=== PATIENT | male | born 1980 | race Caucasian/White ===

== ENCOUNTER 2019-08-07 04:49 | Emergency (ER) | payer OTHER, SELFPAY ==
--- NOTE | ~2019-08-07 | CT_ITS ---
EXAMINATION: CT abdomen pelvis w con DATE: 08/07/2019 05:48 INDICATION: Left-sided abdominal pain. TECHNIQUE: Computed tomography (CT) of the abdomen and pelvis was performed with 100 mL Omnipaque-350 intravenous contrast. Automated exposure control and iterative reconstruction technique were employe d. The dose-length product was 391.01 mGy-cm. COMPARISON: 11/25/2018 FINDINGS: Lung bases are clear. Heart size is normal. No pericardial or pleural effusion. Liver, gallbladder, s pleen, pancreas, bilateral adrenal glands and kidneys are normal. Bowels including the appendix are n ormal. There is diffuse bladder wall thickening. Prostatomegaly. There is also mild enlargement of th e seminal vesicles with surrounding fat stranding. Small bilateral fat-containing inguinal hernias. N o free intraperitoneal gas or fluid. No pathologically enlarged abdominal or pelvic lymphadenopathy. There are few small sclerotic bone islands at the bilateral femoral heads. Mild degenerative skeletal changes at the bilateral hips and at the lumbosacral junction. IMPRESSION: 1. Prostatomegaly, diffuse bladder wall thickening and enlargement and inflammatory stranding of the bilateral seminal vesicles suggestive of cystitis, prostatitis and seminal vesiculitis. Correlate wit h urinalysis. Reviewed, dictated and finalized at location A. IMPRESSION: 1. Prostatomegaly, diffuse bladder wall thickening and enlargement and inflamma tory stranding of the bilateral seminal vesicles suggestive of cystitis, prosta titis and seminal vesiculitis. Correlate with urinalysis.
[2019-08-07 04:53] VITALS: BP 147/105; PULSE 90; RESP 23; TEMP 36.8; O2SAT 100
--- NOTE | 2019-08-07 04:55 | ED.ABDPAIN ---
HPI - Abdominal Pain General Chief Complaint: Abdominal Pain Stated Complaint: Abd pain Time Seen by Provider: 08/07/19 04:52 Source: RN notes reviewed History of Present Illness HPI narrative: Patient presents emergency department from home for abdominal pain. Patient states pain began suddenly approximately 1 hour ago. Pain is located in the left lower quadrant does not radiate described as sharp and stabbing associated with nausea denies any fevers or chills chest pain shortness of breath diarrhea or any other symptoms. Patient states he was seen for similar pain before in past and was given medication for abdominal cramping which she did take Related Data Allergies Allergy/AdvReac Type Severity Reaction Status Date / Time Penicillins Allergy Severe swelling Verified 12/01/18 02:04 Review of Systems Review of Systems: Narrative: Gen.: Denies fevers or chills ENT: Denies congestion Respiratory: Denies shortness of breath or cough CV: Denies chest pain or palpitations GI: See HPI denies burning, urgency, frequency or hematuria Musculoskeletal: Denies back pain or muscle pain Neuro: Denies numbness, tingling, weakness or focal weakness Skin: Denies rash Except as documented, all other systems reviewed and negative FORMERLY [facility] Past Medical History Medical History (Updated 08/07/19 @ 06:41 by Bruce Mckeon DO) Patient denies significant medical history Social History Social History (Updated 08/07/19 @ 04:56 by Bruce Mckeon DO) Smoking status: Current some day smoker Exam Narrative: Exam Narrative: APPEARANCE: No acute distress, nontoxic, resting in bed HEENT: Normocephalic, atraumatic, OMM RESPIRATORY: No respiratory distress, clear to auscultation bilaterally with no rhonchi wheezing or rales CARDIOVASCULAR: RRR s murmur ABDOMINAL: Soft, nondistended, tenderness to palpation in the left mid abdomen minimal tenderness in left lower quadrant and left upper quadrant no tenderness in, right upper quadrant right lower quadrant, no rebound or guarding MUSCULOSKELETAl: Moves all extremities. No clubbing, cyanosis or edema. NEURO: Awake and alert. Following commands, speech normal, no focal deficits SKIN:: Warm, dry. Normal Color PSYCHIATRIC: Normal affect/mood Course Course Emergency Course: Patient states pain is completely resolved at this time repeat abdominal exam is soft and nontender \Discussed with Dr. Frausto patient CT scan and work-up at this time with no pain with urination no testicular tenderness or lower abdominal tenderness recommends no treatment follow-up with PCP as outpatient Reviewed the patient's CT scan shows questionable seminal vesiculitis the patient has no dysuria no testicular tenderness there is no tenderness in the palpation of the deep pelvis feel that this is unlikely at this time I did discuss with the patient and will hold on treatment Patient states that they are feeling much better at this time. States abdominal pain has resolved. Repeat abdominal exam shows the patient's abdomen to be soft and nontender. Discussed with patient results of workup and diagnosis. Discussed need for follow-up with primary care physician, reasons to return to the emergency department in proper use of medication. Patient understands and agrees to current treatment plan Vital Signs Vital signs: Vital Signs Temperature 98.2 F 08/07/19 04:53 Pulse Rate 90 08/07/19 04:53 Respiratory Rate 23 H 08/07/19 04:53 Blood Pressure 147/105 H 08/07/19 04:53 Pulse Oximetry 100 08/07/19 04:53 Temperature 98.7 F 08/07/19 06:42 Pulse Rate 87 08/07/19 06:42 Respiratory Rate 14 08/07/19 06:42 Blood Pressure 148/98 H 08/07/19 06:42 Pulse Oximetry 100 08/07/19 06:42 MDM - Abdominal Pain MDM Narrative Medical decision making narrative: Patient's abdomen is soft without significant pain or signs of surgical abdomen on serial exams. Lab and x-ray evaluations are reviewed and patient is felt
[2019-08-07 05:04] VITALS: BP 157/99
[2019-08-07] MEDS: ONDANSETRON INJ 4 MG/2 ML VIAL IV PUSH (05:09)
[2019-08-07] MEDS: KETOROLAC 30 MG/ML VIAL (*BKC) IV PUSH (05:09)
[2019-08-07] MEDS: SODIUM CHLORIDE 0.9% IV 1,000 ML 999 ML IV CONT (05:09)
[2019-08-07 05:10] LABS: Basophils Absolute Auto 0.1 K/mm3 (0.0-0.1); Basophils Percent Auto 0.9 % (0.2-1.2); Eosinophils Absolute Auto 0.1 K/mm3 (0-0.3); Hematocrit 46.8 % (42.0-52.0); Hemoglobin 16.7 g/dL (14.0-18.0); Immature Granulocyte Absolute 0.02 K/mm3 (0.00-0.031); Immature Granulocyte Percent A 0.3 % (0-0.5); Lymphocytes Absolute Auto 1.46 K/mm3 (0.9-3.2); Lymphocytes Percent Auto 22.4 % (18.3-44.2); Mean Corpuscular HGB Conc 35.7 g/dl (32-36); Mean Corpuscular Volume 92.5 fl (80-100); Mean Platelet Volume 9.7 fl (7.4-10.4); Monocytes Absolute Auto 0.7 K/mm3 (0.1-0.6); Monocytes Percent Auto 10.9 % (2.6-8.5); Neutrophils Absolute Auto 4.2 K/mm3 (1.3-6.7); Neutrophils Percent Auto 63.5 % (45.5-73.1); Platelet Count Result 202 k/mm3 (150-375); Red Blood Count 5.06 M/mm3 (4.6-6.20); White Blood Count 6.5 K/mm3 (4.5-10.0)
[2019-08-07 05:20] LABS: Add Urine Microscopic? YES; Appearance Urine Clear (Clear); Bacteria Urine Trace /hpf; Bilirubin Urine Negative (Negative); Blood Urine Negative (Negative); Color Urine Yellow (Yellow); Glucose Urine UA Negative (Negative); Ketones Urine Negative (Negative); Leukocyte Esterase Ur Negative LEU/UL (Negative); Mucus Urine Few /lpf; Nitrate Urine Negative (Negative); Protein Urine Negative (Negative); Specific Grav Ur 1.014 (1.001-1.035); Squamous Epithelial Cell Urine Rare /hpf (Few); WBC Urine 0-3 /hpf
[2019-08-07 05:28] LABS: Alanine Aminotransferase 19 U/L (4-50); Albumin Level 4.5 g/dL (3.5-5.1); Alkaline Phosphatase 56 U/L (38-126); Aspartate Amino Transferase 20 U/L (17-59); Bilirubin,Total 0.9 mg/dL (0.2-1.3); Blood Urea Nitrogen 6 mg/dL (9-20); Calcium 9.4 mg/dL (8.4-10.2); Carbon Dioxide 28 mmol/L (22-30); Chloride 101 mmol/L (98-107); Estimated Glomerular Filt Rate > 60; Glucose 95 mg/dL (75-110); Lipase 74 U/L (23-300); Potassium 3.5 mmol/L (3.4-5.0); Sodium 137 mmol/L (137-145)
[2019-08-07 06:09] VITALS: BP 153/91; PULSE 97; RESP 18; O2SAT 100
[2019-08-07 06:39] VITALS: BP 148/98; PULSE 89; RESP 14; O2SAT 100
[2019-08-07 06:42] VITALS: BP 148/98; PULSE 87; RESP 14; TEMP 37.1; O2SAT 100
== END 2019-08-07 06:55 | disposition home or self-care (01) ==
PROVIDERS: Emergency Provider Emergency Medicine; PCP Urology
DX: R10.32 Left lower quadrant pain (principal); F17.210 Nicotine dependence, cigarettes, uncomplicated
CPT/HCPCS: 36415; 74177; 80053; 81001; 83690; 85025; 96361; 96374; 96375; 99284; A9270; J1885; J2405; J7030; Q9967

== ENCOUNTER 2022-02-18 18:31 | Observation (INO) | payer OTHER, SELFPAY ==
[2022-02-18] VITALS (8 sets, daily range): BP systolic 95–168; BP diastolic 66–102; PULSE 64–100; RESP 15–23; TEMP 36.6; O2SAT 100; BMI 26.6
--- NOTE | ~2022-02-18 | US_ITS ---
EXAMINATION: US scrotum doppler DATE: 02/18/2022 20:25 INDICATION: R SCROTAL PAIN . TECHNIQUE: Grayscale and Doppler ultrasound images of the testes were obtained. COMPARISON: None. FINDINGS: The right testis measures 5.7 x 2.6 x 3.3 cm. The left testis measures 5.5 x 2.5 x 3.2 cm. No testicular mass. There is normal vascular flow to both testes. The right epididymis is enlarged wi th normal vascular flow. The left epididymis is normal with normal vascular flow. Small right hydroce le. No left hydrocele. No varicoceles. IMPRESSION: Enlarged right epididymis with a small right hydrocele, which may reflect acute or chronic epididymit is. Consider urology referral, with short-term sonographic follow-up after appropriate therapy to exc lude other masses of the epididymis/paratesticlar region, such as adenomatoid tumor, fibrous pseudotu mor, etc. Reviewed, dictated and finalized at location K. ORESIST CONTACT PRINTER IMPRESSION: Enlarged right epididymis with a small right hydrocele, which may reflect acute or chronic epididymitis. Consider urology referral, with short-term sonographi c follow-up after appropriate therapy to exclude other masses of the epididymis /paratesticlar region, such as adenomatoid tumor, fibrous pseudotumor, etc.
--- NOTE | 2022-02-18 19:14 | ECG_ITS ---
Measurements Intervals [place] Rate: 68 P: 25 MS: 137 QRS: -10 QRSD: 112 T: -1 QT: 415 QTc: 443 Interpretive Statements SINUS RHYTHM MODERATE INTRAVENTRICULAR CONDUCTION DELAY [110+ ms QRS DURATION] COMPARED TO ECG 12/01/2018 02:05:36 NO SIGNIFICANT CHANGES Electronically Signed On 02-19-2022 16:18:31 [employer] by Maribel Mckeon M.D.
--- NOTE | 2022-02-18 19:15 | ED.GENADULT ---
HPI - General Adult General Chief complaint: Urogenital-Male Stated complaint: R SCROTAL PAIN Time Seen by Provider: 02/18/22 19:02 History of Present Illness HPI narrative: This is a 41-year-old male presenting to ED with right testicular pain. The pain started at 5:30 p.m.. Started as pain in the suprapubic area but quickly localized to his right testicle. He notes that it is high riding Related Data Allergies Allergy/AdvReac Type Severity Reaction Status Date / Time Penicillins Allergy Severe swelling Verified 02/18/22 19:18 FOR[facility], [facility] Past Medical History Medical History (Updated 02/18/22 @ 22:26 by Robert Zavala MD) Patient denies significant medical history Social History Social History (Updated 08/07/19 @ 04:56 by Bruce Mckeon DO) Smoking status: Current some day smoker Course Vital Signs Vital signs: Vital Signs Temperature 97.8 F 02/18/22 18:52 Pulse Rate 89 02/18/22 18:52 Respiratory Rate 20 02/18/22 18:52 Blood Pressure 95/66 L 02/18/22 18:52 Pulse Oximetry 100 02/18/22 18:52 Temperature 97.8 F 02/18/22 18:52 Pulse Rate 66 02/18/22 22:20 Respiratory Rate 18 02/18/22 22:20 Blood Pressure 150/78 H 02/18/22 22:20 Pulse Oximetry 100 02/18/22 22:20 Oxygen Delivery Room Air 02/18/22 19:00 Medical Decision Making [facility] Narrative Medical decision making narrative: This is a 41-year-old male presenting ED with acute testicle pain. His history and physical are concerning for testicular torsion. Rory D torsion was attempted. A stat ultrasound was ordered. Urology was contacted. The patient is given pain medication. Lab work was ordered. EKG interpretation: Rhythm [sinus], Rate [], [place] -[normal], [place] -[normal], QRS [narrow], QTC [normal], T waves -[negative for concerning inversions], ST Segments - [Negative for concerning elevations] Final interpretations: [Normal Sinus Rhythm] US Scrotum: Enlarged right epididymis with a small right hydrocele, which may reflect acute or chronic epididymitis. Consider urology referral, with short-term sonographic follow-up after appropriate therapy to exclude other masses of the epididymis/paratesticlar region, such as adenomatoid tumor, fibrous pseudotumor, etc. Urinalysis was negative for signs of infection. At this time I still have a very high clinical suspicion for testicular torsion. It is possible that the manual detorsion was successful and restored flow. The patient is still very uncomfortable and requiring IV pain medications. The patient will be admitted to the hospital for pain medication and urology consultation in the morning. I have spoken with the urologist Dr. Garnett. He requests the patient be started on ceftriaxone and Levaquin. Patient will be admitted to the hospital. P.r.n. pain medication have been placed. Vital Signs Vital Signs: Vital Signs Temperature 97.8 F 02/18/22 18:52 Pulse Rate 89 02/18/22 18:52 Respiratory Rate 20 02/18/22 18:52 Blood Pressure 95/66 L 02/18/22 18:52 Pulse Oximetry 100 02/18/22 18:52 Temperature 97.8 F 02/18/22 18:52 Pulse Rate 66 02/18/22 22:20 Respiratory Rate 18 02/18/22 22:20 Blood Pressure 150/78 H 02/18/22 22:20 Pulse Oximetry 100 02/18/22 22:20 Oxygen Delivery Room Air 02/18/22 19:00 Lab Data 02/18/22 19:28 02/18/22 19:28 Labs: Lab Results 02/18/22 02/18/22 02/18/22 Range/Units 19:28 19:28 19:28 WBC 10.1 H (4.5-10.0) K/mm3 RBC 4.93 (4.6-6.20) M/mm3 Hgb 16.5 (14.0-18.0) g/dL Hct 45.4 (42.0-52.0) % MCV 92.1 (80-100) fl MCH 33.5 (26-34) pg MCHC 36.3 H (32-36) g/dl RDW 12.4 (11.5-14.5) % Plt Count 227 (150-375) k/mm3 MPV 9.3 (7.4-10.4) fl Immature Gran % (Auto) 0.3 (0-0.5) % Neut % (Auto) 68.2 (45.5-73.1) % Lymph % (Auto) 21.9 (18.3-44.2) % [place] % (Auto) 8.0 (2.6-8.5) % Eos % (Auto) 0.9 (0-4.4)
[2022-02-18] MEDS: ONDANSETRON INJ 4 MG/2 ML VIAL IV PUSH (19:19)
[2022-02-18] MEDS: HYDROmorphone HCL INJ (*CRX) 1 MG/ML SYR IV PUSH ×2 (19:19→23:10)
[2022-02-18] MEDS: SODIUM CHLORIDE 0.9% IV 1,000 ML 999 ML IV CONT ×2 (19:19→22:16)
[2022-02-18 19:34] LABS: Basophils Absolute Auto 0.1 K/mm3 (0.0-0.1); Basophils Percent Auto 0.7 % (0.2-1.2); Eosinophils Absolute Auto 0.1 K/mm3 (0-0.3); Eosinophils Percent Auto 0.9 % (0-4.4); Hematocrit 45.4 % (42.0-52.0); Hemoglobin 16.5 g/dL (14.0-18.0); Immature Granulocyte Absolute 0.03 K/mm3 (0.00-0.031); Immature Granulocyte Percent A 0.3 % (0-0.5); Lymphocytes Absolute Auto 2.21 K/mm3 (0.9-3.2); Lymphocytes Percent Auto 21.9 % (18.3-44.2); Mean Corpuscular HGB Conc 36.3 g/dl (32-36); Mean Corpuscular Hemoglobin 33.5 pg (26-34); Mean Corpuscular Volume 92.1 fl (80-100); Mean Platelet Volume 9.3 fl (7.4-10.4); Monocytes Absolute Auto 0.8 K/mm3 (0.1-0.6); Neutrophils Absolute Auto 6.9 K/mm3 (1.3-6.7); Neutrophils Percent Auto 68.2 % (45.5-73.1); Platelet Count Result 227 k/mm3 (150-375); Red Blood Count 4.93 M/mm3 (4.6-6.20); Red Cell Distribution Width 12.4 % (11.5-14.5); White Blood Count 10.1 K/mm3 (4.5-10.0)
[2022-02-18 19:44] LABS: Alanine Aminotransferase 21 U/L (6-50); Albumin Level 4.7 g/dL (3.5-5.1); Alkaline Phosphatase 90 U/L (38-126); Anion Gap 12 mmol/L (8-16); Aspartate Amino Transferase 24 U/L (17-59); Bilirubin,Total 0.9 mg/dL (0.2-1.3); Blood Urea Nitrogen 13 mg/dL (9-20); Calcium 9.2 mg/dL (8.4-10.2); Carbon Dioxide 22 mmol/L (22-30); Chloride 103 mmol/L (98-107); Estimated CRCL calculation 108 ml/min; Estimated Glomerular Filt Rate > 60; Glucose 115 mg/dL (65-110); Magnesium 1.7 mg/dL (1.6-2.3); Potassium 3.7 mmol/L (3.4-5.0); Sodium 137 mmol/L (137-145)
[2022-02-18 19:49] LABS: Prothrombin Time 13.1 Seconds (11.1-14.7)
[2022-02-18] MEDS: ACETAMINOPHEN 500 MG TABLET 1000 MG PO (20:55)
[2022-02-18] MEDS: KETOROLAC 15 MG/ML VIAL (*BKC) IV PUSH (20:55)
[2022-02-18 21:18] LABS: Appearance Urine Clear (Clear); Bilirubin Urine Negative (Negative); Blood Urine Negative (Negative); Color Urine Yellow (Yellow); Glucose Urine UA Negative (Negative); Ketones Urine 2+ mg/dL (Negative); Leukocyte Esterase Ur Negative LEU/UL (Negative); Nitrate Urine Negative (Negative); Protein Urine Negative (Negative); Specific Grav Ur 1.025 (1.001-1.035); Urobilinogen Urine 0.2 mg/dL (<2.0)
[2022-02-18 21:27] LABS: Lactic Acid Reflex 2.9 mmol/L (0.7-2.0)
[2022-02-18 21:28] LABS: Mucus Urine Rare /lpf; WBC Urine 0-3 /hpf
[2022-02-18 21:31] LABS: Add Urine Microscopic? YES
[2022-02-18 21:50] LABS: Influenza A QL RT-PCR Negative (Negative); Influenza B QL RT-PCR Negative (Negative); SARS-CoV-2 RNA PCR Negative
--- NOTE | 2022-02-18 23:42 | ADMGEN ---
This patient, Augustus Haddad, was admitted to [facility] Surg Room 329-01. Patient/family oriented to hospital policies and general routines including ID bracelet, bed and alarms, visiting hours, pain management, procedures, bathroom and other care routines, personal items, smoking policy, room service/diet, and visiting hours. Information on how to activate the Rapid Response Team has been discussed. Patient/Family are encouraged to report perceived risks to care and to ask questions if they do not understand what they are told or what they should do.
[2022-02-18 23:57] LABS: Lactic Acid Reflex 1.6 mmol/L (0.7-2.0)
[2022-02-19] MEDS: KETOROLAC 30 MG/ML VIAL (*BKC) IV PUSH ×2 (00:05→09:32)
[2022-02-19 00:10] LABS: Reflex Lactic Acid Yes or No Add Lactic
[2022-02-19] MEDS: LACTATED RINGERS 1,000 ML 125 ML IV CONT ×3 (00:38→19:21)
[2022-02-19] MEDS: MORPHINE SULFATE (*CRX) 2 MG/ML INJ 1 MG IV PUSH ×2 (01:09→01:53)
[2022-02-19] MEDS: ONDANSETRON INJ 4 MG/2 ML VIAL IV PUSH (01:09)
[2022-02-19] MEDS: levoFLOXacin 500 MG/D5W 100 ML 500 MG/100 ML BAG 100 MG IVPB (01:10)
[2022-02-19] MEDS: HYDROmorphone HCL INJ (*CRX) 1 MG/ML SYR IV PUSH (03:23)
[2022-02-19 06:00] VITALS: BP 155/91; PULSE 96; RESP 16; TEMP 36.8; O2SAT 100
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
[2022-02-19] MEDS: IBUPROFEN 400 MG TABLET 800 MG PO ×3 (09:27→17:18)
[2022-02-19 13:42] VITALS: BP 136/77; PULSE 97; RESP 14; TEMP 36.3; O2SAT 100
[2022-02-19 19:16] VITALS: BP 135/76; PULSE 90; RESP 17; TEMP 36.3; O2SAT 100
[2022-02-20] MEDS: IBUPROFEN 400 MG TABLET 800 MG PO ×3 (00:28→11:38)
[2022-02-20 03:14] VITALS: BP 132/74; PULSE 68; RESP 18; TEMP 35.9; O2SAT 99
[2022-02-20] MEDS: LACTATED RINGERS 1,000 ML 125 ML IV CONT (06:37)
[2022-02-20 11:02] VITALS: O2SAT 98
--- NOTE | 2022-02-20 17:04 | P.PNUR_ITS ---
Progress Note: A&P Assessment and Plan (1) Epididymitis, right: Code(s): N45.1 - Epididymitis Status: Acute Assessment and Plan: Ok to discharge home on Ciprofloxacin, elevate scrotum, apply ice. (2) Pain in right testicle: Code(s): N50.811 - Right testicular pain Status: Acute Subjective Subjective Date/Time Seen: 02/20/22 17:04 Right Epididymitis Patient tolerating pain today, he will go home on oral Cipro. Review of Systems Cardiovascular: Cardiovascular: Denies chest pain Respiratory: Respiratory: Reports no additional respiratory complaints Gastrointestinal: Gastrointestinal: Denies abdominal pain, Denies nausea and Denies vomiting Genitourinary: Genitourinary: Denies hematuria, Reports genital pain, Denies dysuria, Denies flank pain, Reports scrotal swelling, Reports testicular pain, Denies urinary frequency, Denies urinary hesitancy, Denies urinary incontinence and Denies urinary urgency Exam 2 Const: General: cooperative and comfortable Resp: Effort & Inspection: normal respiratory effort Cardio: Rate: regular rate GI: GI Palp: Yes Soft to palpation and No Tenderness to palpation present (GI) : General: Yes no CVA tenderness Testes: epididymal induration on the right and epididymal tenderness on the right Extrem: Right lower extremity: no edema Left lower extremity: no edema Objective Data Vital Signs Vital Signs: Vital Signs - 24 hr 02/19/22 19:16 02/20/22 03:14 02/20/22 11:02 Temperature 97.3 F L 96.7 F L Pulse Rate 90 68 Respiratory Rate 17 18 Blood Pressure 135/76 132/74 Pulse Oximetry 100 99 98 Oxygen Delivery Room Air 02/20/22 09:25 Temperature Pulse Rate Respiratory Rate Blood Pressure Pulse Oximetry Oxygen Delivery Room Air Intake/Output Intake/Output: Intake & Output 02/17/22 02/18/22 02/19/22 02/20/22 23:59 23:59 23:59 23:59 Intake Total 20490 2430 Output Total 1300 450 Balance 2049 1160 1979 Meds/Results Radiology Results: ITS Impressions Scrotum Ultrasound 02/18/22 20:28 IMPRESSION: Enlarged right epididymis with a small right hydrocele, which may reflect acute or chronic epididymitis. Consider urology referral, with short-term sonographic follow-up after appropriate therapy to exclude other masses of the epididymis/paratesticlar region, such as adenomatoid tumor, fibrous pseudotumor, etc.
--- NOTE | 2022-02-20 17:08 | PM.DS ---
DS: Admitting Diagnosis Discharge Date 02/20/22 Admitting Diagnosis Right Testicle Edema DS: Discharge Diagnosis Discharge Diagnosis Plan Right Epididymitis DS: Summary Hospital Course Hospital Course: This is a 41-year-old male presenting to ED with right testicular pain on 02/18/22, and states the pain started in the suprapubic area but quickly localized to his right testicle.? He had a scrotal US to rule out torsion, which showed Enlarged right epididymis with a small right hydrocele, which may reflect acute or chronic epididymitis. Consider urology referral, with short-term sonographic follow-up after appropriate therapy to exclude other masses of the epididymis and testiclar region, such as adenomatoid tumor, fibrous pseudotumor, etc. His WBC remains normal and he is afebrile, although his testicle pain has improved since being on IV Levaquin. He will be discharged home today with a regular diet, activity and resume all home meds. He will start Ciprofloxacin, elevate scrotum and apply ice. Time spent discussing smoking cessation with patient: more than 10 minutes Status at Discharge Functional status at discharge: independent ambulation Time Spent with Patient Time attestation: Total time spent providing and/or coordinating discharge services: Time spent: Greater than 30 minutes Exam Const: General: cooperative and comfortable Resp: Effort & Inspection: normal respiratory effort Cardio: Rate: regular rate : General: Yes no CVA tenderness Testes: epididymal induration on the right and epididymal tenderness on the right Extrem: Right lower extremity: no edema Left lower extremity: no edema Discharge Plan Discharge Attending physician on discharge: Guy Garnett Discharging Clinician: Daniella Alexis Anticipated Discharge Date/Time: 02/20/22 13:23 Patient Disposition: Home, Self-Care Activity: may shower Diet: as tolerated Discharge Instructions: Call the office to schedule your 2-3 week f/u appointment. Ok to take Ibuprofen 800mg q6 hours PRN for pain. Apply Ice to Scrotum and elevate scrotum to improve pain and swelling. If you develop a fever or worsening symptoms call the office or go to the ER. Patient Instructions: Antibiotic Form, Hydrocele (DC), Pain Management (DC) Stand Alone Forms: General Discharge Information Follow-up/Referrals: Guy Garnett MD [Physician] - Discharge Medications: New ciprofloxacin HCl 500 mg tablet 500 mg PO Q12H Qty: 20 0RF Continued valacyclovir 500 mg tablet 500 mg PO DAILY dextroamphetamine-amphetamine [Adderall XR] 30 mg capsule,extended release 24hr 30 mg PO DAILY bupropion HCl 300 mg tablet extended release 24 hr 300 mg PO DAILY tadalafil 5 mg tablet 5 mg PO PRN PRN (Reason: Erectile Dysfunction) melatonin 5 mg Capsule 5 mg PO HS PRN (Reason: Insomnia) Date of admission: 02/18/22 22:22 Primary Care Provider: PHYSICIAN NOT ON STAFF,NONSTAFF Admitting Provider: Guy Garnett Attending physician on admission: Guy Garnett Condition: Improved
== END 2022-02-20 14:10 | disposition home or self-care (01) ==
LOC: ANHED 22:26 → ANH3MEDSUR 22:56
PROVIDERS: Admitting Provider Urology; Emergency Provider Emergency Medicine; Visit Provider Urology
DX: N45.1 Epididymitis (principal); N43.3 Hydrocele, unspecified; N50.89 Other specified disorders of the male genital organs; I45.4 Nonspecific intraventricular block; F17.210 Nicotine dependence, cigarettes, uncomplicated; F10.90 Alcohol use, unspecified, uncomplicated; Z79.899 Other long term (current) drug therapy
CPT/HCPCS: 36415; 76870; 80053; 81001; 83605; 83735; 85025; 85610; 85730; 87636; 93005; 93976; 96361; 96374; 96375; 96376; 99285; A9270; G0378; J0131; J0696; J1170; J1885; J1956; J2270; J2405; J7030; J7120

== ENCOUNTER → 2022-03-12 13:47 | Outpatient (CLI) | payer OTHER, SELFPAY ==
--- NOTE | ~2022-03-12 | US_ITS ---
EXAMINATION: US scrotum doppler DATE: 03/12/2022 14:19 INDICATION: Epididymitis. Follow-up exam, persistent swelling in spite of antibiotic therapy. TECHNIQUE: Grayscale and Doppler ultrasound images of the testes were obtained. COMPARISON: 02/18/2022 FINDINGS: The right testis measures 5.6 x 3.2 x 3.3 cm. The left testis measures 7.0 x 2.7 x 2.6 cm. No testicular mass. Absent vascular flow in the right testicle and epididymal tissues. Normal vascula r flow in the left testicle. The right epididymis is enlarged and heterogeneous. Somewhat lobular adam earing heterogeneously hyperechoic areas in the right scrotum, which may represent epididymal tissue or possibly other inflamed soft tissue and/or empyema. The left epididymis is normal with normal vasc ular flow. Small bilateral hydroceles, greater on the right. Left varicocele. IMPRESSION: Lack of vascular flow in the right testicle. Persistent right epididymal enlargement. Increased heter ogeneous and hyperechoic intratesticular material may represent abnormal epididymal body and tail elvis carmen empyema. Other paratesticular mass is not excluded. Results reported telephonically to Dr. Garnett by Dr. Hale at 2:52 PM on 03/12/2022. Reviewed, dictated and finalized at location K. D AND FAMILY THERAPIST IMPRESSION: Lack of vascular flow in the right testicle. Persistent right epididymal enlarg ement. Increased heterogeneous and hyperechoic intratesticular material may rep resent abnormal epididymal body and tail versus empyema. Other paratesticular m ass is not excluded. Results reported telephonically to Dr. Garnett by Dr. Hale at 2:52 PM on 03/12.
== END ==
PROVIDERS: PCP Urology; Visit Provider Urology
DX: N45.1 Epididymitis (principal); R93.89 Abnormal findings on diagnostic imaging of other specified body structures
CPT/HCPCS: 76870; 93976

== ENCOUNTER 2022-03-21 01:13 | Day surgery (SDC) | payer OTHER, SELFPAY ==
[2022-03-19 10:54] VITALS: BMI 25.7
--- NOTE | 2022-03-19 10:58 | PC.NURSE ---
Report to the Outpatient Waiting Room, entrance under the green pavilion located off [facility], at time 1330 on date 03/21/22. Planned Procedure Time: 1530. Time changes happen often and if your time is changed the preop area will call you the afternoon before. - You and your visitor will be asked to self-screen and do not enter if you have any COVID symptoms. - Only one visitor is requested with a max of two and NO children visitors are allowed at this time. - The patient visitor may be requested to leave or wait in car when not with patient due to distancing restrictions. - A mask is REQUIRED within the hospital. Patients may have clear liquids (water, carbonated beverages, clear teas, apple juice) until 3 hours prior to surgery with a maximum of 20 ounces. - No food from midnight until time of surgery Take the following medications with a SIP of water the morning of surgery: BUPROPION Medications to discontinue per physician: VITAMINS/SUPPLEMENTS Date to take last dose: NO MORE UNTIL AFTER SURGERY Please no make-up, nail irish, hairspray, perfume, deodorant, or body powder the day of surgery. No jewelry (including any body piercings) or valuables the day of surgery, leave them at home. Please take a shower or bath the night before, or the morning of, surgery with an antibacterial soap. Wear comfortable, loose fitting clothing. - Jewelry must be removed prior to entering the operating room. Rings and piercings that are not removed may be cut off. - The hospital will not accept responsibility for valuables. - Please leave all valuables, including medications, at home the day of surgery. If you are going home after surgery, a licensed driver salesman must drive you home. - NO public transportation without another adult if you receive anesthesia. - We recommend that an adult stay with you for 24 hours following discharge. - We also recommend that you do not drive, make important decision, drink alcoholic beverages, or take any drugs that were not prescribed by your health care provider for at least 24 hours after your discharge time. Follow any additional instructions given to you from your surgeon. If you or anyone in your household have experienced Covid symptoms in the past week, please notify your surgeon or the nurse liaison at the phone number below for possible testing. Telephone instructions given to PT - JEOVANNY GARCIA and asked if any additional questions and then verbalized understanding. Patient advised to call surgeon office or pre surgery nurse liaison [phone] if any additional questions.
[2022-03-21] VITALS (9 sets, daily range): BP systolic 134–159; BP diastolic 85–100; PULSE 75–90; RESP 13–18; TEMP 36.7; O2SAT 97–100
[2022-03-21 11:53] LABS: Add Urine Microscopic? NO; Appearance Urine Clear (Clear); Bilirubin Urine Negative (Negative); Blood Urine Negative (Negative); Color Urine Yellow (Yellow); Glucose Urine UA Negative (Negative); Ketones Urine Negative (Negative); Leukocyte Esterase Ur Negative LEU/UL (Negative); Nitrate Urine Negative (Negative); Protein Urine Negative (Negative); Specific Grav Ur 1.025 (1.001-1.035); Urobilinogen Urine 0.2 mg/dL (<2.0)
--- NOTE | 2022-03-21 11:56 | WPDHPUPDATE1 ---
History and Physical Update Update Date/Time: 03/21/22 11:56 History and Physical has been reviewed, including an updated exam of the patient. There are NO changes in the patient's condition. Risks, benefits, and alternatives have been discussed and questions answered. Patient agrees to proceed with procedure. Proceed with scrotal exploration, possible right orchiectomy
--- NOTE | 2022-03-21 12:07 | WPDANESEPPF ---
Anes - Initial Pre Proc Eval Procedure: Operation Date: 03/21/22 13:00 Proposed Procedures p Scrotal Exploration, Possible Right Orchiectomy - Guy Garnett MD Date/Time: 03/21/22 12:07 Surgeon: Guy Garnett MD Pre Op Diagnosis: nonfunctioning testicle Patient Data Age: 41 Gender: M Height: 1.88 m Weight: 90.72 kg Allergies Allergy/AdvReac Type Severity Reaction Status Date / Time Penicillins Allergy Severe swelling Verified 03/19/22 10:53 Home Medications Medication Instructions Recorded Confirmed Type bupropion HCl 300 mg 24 hr tablet, 300 mg PO DAILY 02/19/22 03/19/22 History extended release dextroamphetamine-amphetamine ER 30 mg PO DAILY 02/19/22 03/19/22 History 30 mg 24hr capsule,extend release (Adderall XR) tadalafil 5 mg tablet 5 mg PO PRN PRN Erectile 02/19/22 03/19/22 History Dysfunction melatonin 5 mg capsule 5 mg PO HS PRN Insomnia 02/20/22 03/19/22 History Laboratory Tests 03/21/22 11:37 Urine Color Yellow (Yellow) Urine Appearance Clear (Clear) Urine pH 6.0 (5.0-9.0) Ur Specific [place] 1.025 (1.001-1.035) Urine Protein Negative mg/dL mg/dL (Negative) Urine Glucose (UA) Negative mg/dL mg/dL (Negative) Urine Ketones Negative mg/dL mg/dL (Negative) Ur Blood (Man) Negative (Negative) Urine Nitrate Negative (Negative) Urine Bilirubin Negative (Negative) Urine Urobilinogen 0.2 mg/dL mg/dL (<2.0) Leukocyte Esterase Rfl Negative OLGA/UL OLGA/UL (Negative) Patient hx anesthesia problems: none Family hx anesthesia problems: none Results Review: All pre-operative results and documents have been reviewed as part of the pre-operative evaluation. [facility] Past Medical History Medical History (Updated 03/21/22 @ 12:07 by Luis Clemente MD) Anxiety HTN (hypertension) Family History Family History Father Skin cancer Social History Social History Years smoked: 2 Smoking status: Never smoker Tobacco type: cigarettes Alcohol intake: current Drinks per week: 12 Substance use: never Substance use type: does not use Lack of Transportation: No Lack of Food: Never True Current Housing: I Have Housing Concerned About Future Housing: No Difficulty Paying Gas/Electric Bills: No Difficulty Paying for Meds: No Currently Unemployed: No Education: Trade/Vocational Certificate Difficulty w/ Childcare or Family Care: No Living arrangements: with family Additional living arrangements comments: CHILDREN Spiritual care concerns: No Anes - Eval Final PreProcedure Day of Procedure 03/21/22 12:07 Patient weight: normal Heart: regular rate and rhythm Lungs: clear to auscultation Airway: Mallampati scale class II Neurological: alert and oriented Last oral intake: >/= 8 hours Emergent: no Anesthetic plan: proceed Anesthesia type and monitoring: general LMA and standard monitoring Results Review: All pre-operative results and documents have been reviewed as part of the pre-operative evaluation. Informed Consent: The patient's anesthetic plan and its attendant risks and benefits were discussed with the patient/family/POA. Questions were solicited and answers provided to the satisfaction of the patient/family/POA.
[2022-03-21] MEDS: LACTATED RINGERS 1,000 ML 30 ML IV CONT ×2 (12:09→14:25)
[2022-03-21] MEDS: ceFAZolin 2 GM/D5W 50 ML 2 GM/50 ML BAG IVPB (12:58)
[2022-03-21] MEDS: BACITRACIN OINTMENT 15 GM TUBE 1 APPLIC TOPICAL (14:15)
[2022-03-21] MEDS: BUPIVACAINE HCL 0.25% PF 30 ML VIAL INFILTRATE (14:15)
--- NOTE | 2022-03-21 14:16 | W.PM.PROC2 ---
Procedure Note - Detailed Date of Procedure 03/21/22 Pre-op Diagnosis nonfunctioning right testicle Post-op Diagnosis Same (Nonfunctioning right testicle) Procedure Performed Scrotal exploration with right orchiectomy Surgeon Guy Garnett MD Anesthesia General Description of Procedure Patient is taken to the operative suite correctly identified. Once anesthesia was obtained was placed in supine position prepped draped usual sterile fashion. A transverse incision was made in the right hemiscrotum. This carried down through the skin. Due to the patient's history of this infection inflammatory reaction there was no distinct tunical layers. Were able to dissect down to did least free the testicle out of the right hemiscrotum. This was then freed up to the inguinal canal. We proceeded to do a right orchiectomy in a standard fashion using Peon clamps. We suture ligated using 2-0 Prolene suture. The wound was copiously irrigated. There was no great distinct tunical layers but we approximated some subcutaneous tissue using 2 0 chromic. Skin was closed in running fashion using 2-0 chromic. Quarter-inch Social Circle drain had been placed through a separate stab incision and secured using chromic. Patient is taken recovery room stable condition. He will remove the Ailyn drain on Friday if there is no drainage or sooner if it stops completely Estimated Blood Loss 10 Drains Yes Packing No Pathology Yes Complications No immediate complications Condition Stable Disposition PACU
[2022-03-21] MEDS: fentaNYL CITRATE INJ (*CRX) 100 MCG/2 ML VIAL 25 MCG IV PUSH ×4 (14:49→14:58)
[2022-03-21] MEDS: oxyCODONE HCL (*CRX) 5 MG TAB IR PO (15:33)
== END 2022-03-21 16:05 | disposition home or self-care (01) ==
PROVIDERS: Visit Provider Urology
PROC: (CPT 55110; principal; 2022-03-21 13:00)
DX: N50.1 Vascular disorders of male genital organs (principal)
CPT/HCPCS: 54640; 81003; 88305; 88342; A9270; J0690; J1100; J1170; J2250; J2405; J2704; J3010; J7120